=== PATIENT | male | born 1965 | race Caucasian/White ===

== ENCOUNTER 2021-07-17 23:02 | Emergency (ER) | payer OTHER, SELFPAY ==
[2021-07-17 23:12] VITALS: BP 147/83; PULSE 74; RESP 18; TEMP 36.5; O2SAT 95; BMI 27.9
--- NOTE | 2021-07-17 23:25 | CTR_ITS ---
PROCEDURE INFORMATION: Exam: CTA Chest With Contrast Exam date and time: 07/17/2021 11:25 PM Age: 56 years old Clinical indication: Abdominal pain; Localized; Left upper quadrant (luq); Left-sided; Prior surgery; Surgery date: 6+ months; Surgery type: Multiple abd; Patient HX: C/O cp w luq spasms TECHNIQUE: Imaging protocol: Computed tomographic angiography of the chest with contrast. 3D rendering (Not supervised by radiologist): MIP and/or 3D reconstructed images were created by the technologist. Radiation optimization: All CT scans at this facility use at least one of these dose optimization techniques: automated exposure control; mA and/or kV adjustment per patient size (includes targeted exams where dose is matched to clinical indication); or iterative reconstruction. Contrast material: OMNI 350; Contrast volume: 95 ml; Contrast route: INTRAVENOUS (IV); COMPARISON: No relevant prior studies available. RADIATION DOSE METRICS: Total DLP (mGy-cm): 1562.88 FINDINGS: Pulmonary arteries: Normal. No pulmonary emboli. Aorta: Unremarkable. No aortic aneurysm. No aortic dissection. Lungs: Emphysema. Upper lobe blebs. Negative for focal airspace consolidation. Negative for focal endobronchial lesion. Peripheral, subpleural ground-glass changes in the posterior lower lobes. Pleural spaces: Negative for pleural effusion. No pneumothorax. Heart: Unremarkable. No cardiomegaly. No pericardial effusion. Lymph nodes: Numerous tiny mediastinal lymph nodes are present. Bones/joints: Unremarkable. No acute fracture. Soft tissues: Unremarkable. IMPRESSION: Negative for pulmonary embolism. PROCEDURE INFORMATION: Exam: CT Abdomen And Pelvis With Contrast Exam date and time: 07/17/2021 11:25 PM Age: 56 years old Clinical indication: Abdominal pain; Localized; Left upper quadrant (luq); Left-sided; Prior surgery; Surgery date: 6+ months; Surgery type: Multiple abd; Patient HX: C/O cp w luq spasms TECHNIQUE: Imaging protocol: Computed tomography of the abdomen and pelvis with contrast. Radiation optimization: All CT scans at this facility use at least one of these dose optimization techniques: automated exposure control; mA and/or kV adjustment per patient size (includes targeted exams where dose is matched to clinical indication); or iterative reconstruction. Contrast material: OMNI 350; Contrast volume: 95 ml; Contrast route: INTRAVENOUS (IV); COMPARISON: No relevant prior studies available. RADIATION DOSE METRICS: Total DLP (mGy-cm): 1562.88 FINDINGS: Liver: Simple hepatic cyst in the right lobe measures 17 mm diameter. Gallbladder and bile ducts: Cholecystectomy. Intrahepatic and extrahepatic biliary system is mildly dilated. Pancreas: Normal. No ductal dilation. Spleen: Normal. No splenomegaly. Adrenal glands: Normal. No mass. Kidneys and ureters: Normal. No hydronephrosis. Stomach and bowel: Mild diverticulosis coli. No focal acute bowel wall inflammatory changes are identified. No focal bowel mass identified. Negative for bowel obstruction or perforation. Appendix: Normal appendix. Intraperitoneal space: Unremarkable. No free air. No significant fluid collection. Vasculature: Portal venous confluence is occluded. Mesenteric vein collaterals are noted throughout abdominal mesentery. The main portal vein is patent. Left and right portal veins are patent. The central aspect of the splenic vein is not clearly seen. Scattered abdominal aorta atherosclerosis without aneurysm or dissection. Lymph nodes: Unremarkable. No enlarged lymph nodes. Urinary bladder: Unremarkable as visualized. Reproductive: Unremarkable as visualized. Bones/joints: Unremarkable. No acute fracture. Soft tissues: Unremarkable. CT/CT angio chest w abd pel w con IMPRESSION: 1. Negative for acute abdominopelvic pathology. 2. 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 Radiation Dose CTDIVOL = (mGy): DLP = 1562.88~1562.88 (mGy-cm)
--- NOTE | 2021-07-17 23:25 | ECG_ITS ---
[facility] Test Date: 2021-07-17 Pat Name: Nate Bach Department: Room: Gender: Male Beader: : 1965 Requested By: Alcides Correa Order Number: [id number] Read MD: Samira Raygoza M.D. Measurements Intervals [place] Rate: 80 P: 43 MO: 163 QRS: -21 QRSD: 100 T: 35 QT: 368 QTc: 426 Interpretive Statements SINUS RHYTHM BORDERLINE LEFT AXIS DEVIATION [QRS AXIS < -20] INCOMPLETE RIGHT BUNDLE BRANCH BLOCK [90+ ms QRS DURATION, TERMINAL R IN V1/V2, 40+ ms S IN I/aVL/V4/V5/V6] No previous ECG available for comparison Electronically Signed On 07-18-2021 19:21:25 CDT by Samira Raygoza M.D. [id number]
--- NOTE | 2021-07-17 23:31 | W.ED.ABDPA2 ---
HPI - Abdominal Pain General: Chief Complaint: Abdominal Pain Stated Complaint: Mid Back Pain by Ribs Time Seen by Provider: 07/17/21 23:21 Source: patient Mode of arrival: ambulatory Limitations: no limitations History of Present Illness: HPI narrative: 56-year-old male has a history of pancreatitis following multiple abdominal surgeries stemming from his pancreatitis. He states that starting roughly 1 to 2 hours ago he started having a sharp pain in his upper abdomen along with bilateral lower chest. States pain radiates to his back. States pain is currently a 9 out of 10 he is having difficulty sleeping. He denies any vomiting he has had some nausea denies any fever. Denies any cough. Denies any shortness of breath. Associated Symptoms: Denies chills, dysuria and fever(s) Review of Systems Const: Denies: fever(s), chills, body aches or change in appetite Eyes: Denies: blurry vision or eye discomfort ENMT: Denies: throat pain or dental pain Card: Reports: chest pain Resp: Denies: dyspnea GI: Reports: abdominal pain : Denies: dysuria Musc: Denies: neck pain or back pain Skin/Breast: Denies: rash Neuro: Denies: headache(s) Psych: Denies: depression Marcus/Lymph: Denies: easy bruising All/Imm: Denies: urticaria Physical Exam Const: COMMON NORMALS: no acute distress, patient oriented x3 and healthy appearing HENMT: COMMON NORMALS: normocephalic and atraumatic HEAD & SCALP: normocephalic and atraumatic Eye: COMMON NORMALS: Equal, round and reactive pupils present and EOMs intact bilaterally PUPIL: Yes Equal, round and reactive pupils present Neck/C-Spine: COMMON NORMALS: full ROM and supple Chest: COMMONS NORMALS: normal inspection of the chest and normal palpation of entire chest wall Resp: COMMON NORMALS: normal respiratory effort, No retractions, No use of accessory muscles and clear to auscultation bilaterally AUSCULTATION: clear to auscultation bilaterally Cardio: COMMON NORMALS: regular rate, regular rhythm and No murmurs present (Cardio) RATE: regular rate RHYTHM: regular rhythm GI: COMMON NORMALS: Normal to inspection, nondistended, normoactive bowel sounds present, Soft to palpation, non-tender and no masses PALPATION: Yes Soft to palpation Extremity: COMMON NORMALS: normal to inspection and full ROM Neuro: COMMON NORMALS: patient oriented x3, moves all extremities and no focal motor deficits Psych: COMMON NORMALS: mental status grossly normal, Normal thought process present and cooperative THOUGHT PROCESS: Normal thought process present Skin: COMMON NORMALS: no rashes or lesions noted and no wounds GENERAL SKIN EXAM: no rashes or lesions noted Course Vital Signs: Vital signs: Vital Signs Temperature 97.7 F 07/17/21 23:12 Pulse Rate 73 07/17/21 23:54 Respiratory Rate 12 07/17/21 23:54 Blood Pressure 108/62 07/18/21 02:35 Pulse Oximetry 94 07/18/21 02:35 MDM - Abdominal Pain MDM Narrative: Medical decision making narrative: Patient presents with abdominal pain also some lower chest pain. Troponins EKG CTs are all normal. He feels much improved here as well. He is stable for discharge is to follow-up his PCP and return if worsening. Lab Data: Labs: Lab Results 07/17/21 07/17/21 07/17/21 23:50 23:50 23:50 WBC 6.1 10^3/uL 10^3/ uL (4.0-10.0) RBC 4.43 10^6/uL 10^6 /uL (4.1-5.3) Hgb 15.0 g/dL g/dL (11.7-16.6) Hct 40.5 % L % (42.0-52.0) MCV 91.4 fl fl (80-94) MCH 33.9 pg pg (28.0-34.0) MCHC 37.0 g/dL H g/dL (30.0-36.0) RDW 15.2 % H % (12.1-15.1) Plt Count 97 10^3/cmm L 10^ 3/cmm (130-400) MPV 11.6 fL H fL (7.4-10.4) Neut % (Auto) 76.6 % % Lymph % (Auto) 9.8 % % [place] % (Auto) 10.6 % % Eos % (Auto) 2.3 % % Baso % (Auto) 0.5 % % Neut # (Auto) 4.64 10^3/uL 10^3 /uL (1.8-7.7) Lymph # (Auto) 0.6 10^3/uL L 10^ 3/uL (0.8-4.8) [place] # (Auto) 0.6 10^3/uL 10^3/ uL (0.2-0.9) Eos # (Auto) 0.1 10^3/uL 10^3/ uL (0.0-0.8) Baso # (Auto) 0.0 10^3/uL 10^3/ uL (0.0-0.1) Nucleated RBC % (a uto) 0 % % Nucleated RBCs # 0.0 /100WBC /100W BC Sodium 136 mmol/L mmol/L (136-145) Potassium 4.4 mmol/L mmol/L (3.5-5.1) Chloride 105 mmol/L mmol/L (98-107) Carbon Dioxide 23 mmol/L mmol/L (22-29) Anion Gap 12.4 (5-19) BUN 20 mg/dL mg/dL (6-20) Creatinine 1.2 mg/dL mg/dL (0.7-1.2) GFR Calculation 62.9 mL/min L mL/ min (90-130) Glucose 148 mg/dL H mg/dL (65-115) Calculated Osmolal ity 287 mOsm/kg mOsm/ kg (285-295) Calcium 8.7 mg/dL mg/dL (8.5-10.5) Total Bilirubin 0.5 mg/dL mg/dL (0.15-1.2) AST 31 U/L U/L (0-40) ALT 26 U/L U/L (0-41) Alkaline Phosphata se 81 IU/L IU/L (40-130) Troponin T Baselin e 9 ng/L ng/L (0-15) Troponin T 120 Min craig Delta Troponin T Total Protein 6.2 g/dL L g/dL (6.6-8.7) Albumin 3.8 g/dL g/dL (3.5-5.2) Globulin 2.4 g/dL g/dL (1.3-4.6) Lipase 52 U/L U/L (13-60) Urine Color Urine Appearance Urine pH Ur Specific Gravit y Urine Protein Urine Glucose (UA) Urine Ketones Urine Blood Urine Nitrate Urine Bilirubin Urine Urobilinogen Ur Leukocyte Madeline ase 07/18/21 07/18/21 00:58 01:54 WBC RBC Hgb Hct MCV MCH MCHC RDW Plt Count MPV Neut % (Auto) Lymph % (Auto) [place] % (Auto) Eos % (Auto) Baso % (Auto) Neut # (Auto) Lymph # (Auto) [place] # (Auto) Eos # (Auto) Baso # (Auto) Nucleated RBC % (a uto) Nucleated RBCs # Sodium Potassium Chloride Carbon Dioxide Anion Gap BUN Creatinine GFR Calculation Glucose Calculated Osmolal ity Calcium Total Bilirubin AST ALT Alkaline Phosphata se Troponin T Baselin e Troponin T 120 Min craig 8.35 ng/L ng/L (0-15) Delta Troponin T -0.65 ABS# L ABS# (0-10) Total Protein Albumin Globulin Lipase Urine Color Yellow (Yellow) Urine Appearance Clear (CLEAR) Urine pH 5 (5-7) Ur Specific Gravit y 1.020 (1.005-1.030) Urine Protein Neg (Negative) Urine Glucose (UA) Norm (Normal) Urine Ketones Negative (Negative) Urine Blood Neg (Negative) Urine Nitrate Negative (Negative) Urine Bilirubin Neg (Negative) Urine Urobilinogen Norm mg/dL mg/dL (Negative) Ur Leukocyte Madeline ase Negative (Negative) Imaging Data ^: CT Chest: Attestation: I personally reviewed and interpreted this imaging study as follows: Radiologist's impression: [address] [address] [address] Scan Report Signed Patient: Nate Bach Unit #: [id number] : 1965 Age/Sex: 56 / M ADM Date: 07/17/21 Loc: ER Room/Bed: Attending Dr: Ordering Provider/Ordering MD: Alcides Correa MD Date of Service: 07/17/21 Procedure(s): CT angio chest w abd pel w con Accession Number(s): [id number] Report Number: [id number] PROCEDURE INFORMATION: Exam: CTA Chest With Contrast Exam date and time: 07/17/2021 11:25 PM Age: 56 years old Clinical indication: Abdominal pain; Localized; Left upper quadrant (luq); Left-sided; Prior surgery; Surgery date: 6+ months; Surgery type: Multiple abd; Patient HX: C/O cp w luq spasms TECHNIQUE: Imaging protocol: Computed tomographic angiography of the chest with contrast. 3D rendering (Not supervised by radiologist): MIP and/or 3D reconstructed images were created by the technologist. Radiation optimization: All CT scans at this facility use at least one of these dose optimization techniques: automated exposure control; mA and/or kV adjustment per patient size (includes targeted exams where dose is matched to clinical indication); or iterative reconstruction. Contrast material: OMNI 350; Contrast volume: 95 ml; Contrast route: INTRAVENOUS (IV); COMPARISON: No relevant prior studies available. RADIATION DOSE METRICS: Total DLP (mGy-cm): 1562.88 FINDINGS: Pulmonary arteries: Normal. No pulmonary emboli. Aorta: Unremarkable. No aortic aneurysm. No aortic dissection. Lungs: Emphysema. Upper lobe blebs. Negative for focal airspace consolidation. Negative for focal endobronchial lesion. Peripheral, subpleural ground-glass changes in the posterior lower lobes. Pleural spaces: Negative for pleural effusion. No pneumothorax. Heart: Unremarkable. No cardiomegaly. No pericardial effusion. Lymph nodes: Numerous tiny mediastinal lymph nodes are present. Bones/joints: Unremarkable. No acute fracture. Soft tissues: Unremarkable. IMPRESSION: Negative for pulmonary embolism. PROCEDURE INFORMATION: Exam: CT Abdomen And Pelvis With Contrast Exam date and time: 07/17/2021 11:25 PM Age: 56 years old Clinical indication: Abdominal pain; Localized; Left upper quadrant (luq); Left-sided; Prior surgery; Surgery date: 6+ months; Surgery type: Multiple abd; Patient HX: C/O cp w luq spasms TECHNIQUE: Imaging protocol: Computed tomography of the abdomen and pelvis with contrast. Radiation optimization: All CT scans at this facility use at least one of these dose optimization techniques: automated exposure control; mA and/or kV adjustment per patient size (includes targeted exams where dose is matched to clinical indication); or iterative reconstruction. Contrast material: OMNI 350; Contrast volume: 95 ml; Contrast route: INTRAVENOUS (IV); COMPARISON: No relevant prior studies available. RADIATION DOSE METRICS: Total DLP (mGy-cm): 1562.88 FINDINGS: Liver: Simple hepatic cyst in the right lobe measures 17 mm diameter. Gallbladder and bile ducts: Cholecystectomy. Intrahepatic and extrahepatic biliary system is mildly dilated. Pancreas: Normal. No ductal dilation. Spleen: Normal. No splenomegaly. Adrenal glands: Normal. No mass. Kidneys and ureters: Normal. No hydronephrosis. Stomach and bowel: Mild diverticulosis coli. No focal acute bowel wall inflammatory changes are identified. No focal bowel mass identified. Negative for bowel obstruction or perforation. Appendix: Normal appendix. Intraperitoneal space: Unremarkable. No free air. No significant fluid collection. Vasculature: Portal venous confluence is occluded. Mesenteric vein collaterals are noted throughout abdominal mesentery. The main portal vein is patent. Left and right portal veins are patent. The central aspect of the splenic vein is not clearly seen. Scattered abdominal aorta atherosclerosis without aneurysm or dissection. Lymph nodes: Unremarkable. No enlarged lymph nodes. Urinary bladder: Unremarkable as visualized. Reproductive: Unremarkable as visualized. Bones/joints: Unremarkable. No acute fracture. Soft tissues: Unremarkable. CT/CT angio chest w abd pel w con IMPRESSION: 1. Negative for acute abdominopelvic pathology. 2. 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 Radiation Dose CTDIVOL = (mGy): DLP = 1562.88 1562.88 (mGy-cm) EKG Data ^: EKG 1: Attestation: I personally reviewed and interpreted this EKG as follows: EKG interpretation date: 07/17/21 EKG interpretation time: 23:31 Interpretation: nsr hr [address] or t wave abnormalities qrs 100 qtc 404 Discharge Plan Discharge Patient Disposition: Home Clinical Impression: Abdominal pain Qualifiers: Abdominal location: generalized Qualified Code(s): R10.84 - Generalized abdominal pain Condition: Stable Discharge Orders: Discharge ED (Routine); Ordered 07/18/21 Ordered By: Alcides Correa Discharge Diet: Advance as tolerated Discharge Activity: Resume usual activity Patient Instructions: Abdominal Pain (ED), Opioid Safety Coding Level of Care Code ED Parachute Marker for Chg Fwd Exam Comprehensive
[2021-07-17] MEDS: sodium chloride 0.9% 1,000 ML 999 ML IV (23:38)
[2021-07-17] MEDS: ondansetron 2 mg/ML SDV 2 mL 4 MG IVP (23:42)
[2021-07-17] MEDS: HYDROmorphone 1 mg/mL INJ 1 mL IVP (23:42)
[2021-07-17 23:54] VITALS: BP 120/93; PULSE 73; RESP 12; O2SAT 90
[2021-07-17 23:56] LABS: Basophils % 0.5 %; Eosinophils # 0.1 10^3/uL (0.0-0.8); Eosinophils % 2.3 %; Hematocrit 40.5 % (42.0-52.0); Lymphocytes # 0.6 10^3/uL (0.8-4.8); Lymphocytes % 9.8 %; Mean Corpuscular Hemoglobin 33.9 pg (28.0-34.0); Mean Corpuscular Volume 91.4 fl (80-94); Mean Platelet Volume 11.6 fL (7.4-10.4); Monocytes # 0.6 10^3/uL (0.2-0.9); Monocytes % 10.6 %; Neutrophils # 4.64 10^3/uL (1.8-7.7); Neutrophils % 76.6 %; Nucleated Red Blood Cells % 0 %; Platelet Count 97 10^3/cmm (130-400); Red Blood Count 4.43 10^6/uL (4.1-5.3); Red Cell Distribution Width 15.2 % (12.1-15.1); White Blood Count 6.1 10^3/uL (4.0-10.0)
[2021-07-17 23:58] VITALS: O2SAT 92
[2021-07-18] VITALS (38 sets, daily range): BP systolic 104–130; BP diastolic 62–75; O2SAT 91–96
[2021-07-18] MEDS: iohexol 350 mg/mL 100 mL Btl IV (00:22)
[2021-07-18 00:25] LABS: Albumin Level 3.8 g/dL (3.5-5.2); Alkaline Phosphatase 81 IU/L (40-130); Blood Urea Nitrogen 20 mg/dL (6-20); Calcium 8.7 mg/dL (8.5-10.5); Carbon Dioxide 23 mmol/L (22-29); Chloride 105 mmol/L (98-107); Creatinine Clr Calc Pharmacy 77.8974; Globulin 2.4 g/dL (1.3-4.6); Glomerular Filtration Rate 62.9 mL/min (90-130); Glucose 148 mg/dL (65-115); Lipase 52 U/L (13-60); Osmolality Calculated 287 mOsm/kg (285-295); Sodium 136 mmol/L (136-145); Total Bilirubin 0.5 mg/dL (0.15-1.2); Total Protein 6.2 g/dL (6.6-8.7); Troponin(5th) Baseline 9 ng/L (0-15)
[2021-07-18 00:33] LABS: Slide Review Slide Review Perform
[2021-07-18 00:34] LABS: Anion Gap 12.4 (5-19); Potassium 4.4 mmol/L (3.5-5.1)
[2021-07-18 01:20] LABS: Add Urine Microscopic? NO; Charge for UA Resulting for Rev
[2021-07-18 01:25] LABS: Bilirubin Urine Neg (Negative); Blood Urine Neg (Negative); Glucose Urine UA Norm (Normal); Ketones Urine Negative (Negative); Leukocyte Esterase Urine Negative (Negative); Nitrate Urine Negative (Negative); Protein Urine Neg (Negative); Urine Appearance Clear (CLEAR); Urine Color Yellow (Yellow); Urobilinogen Urine Norm (Negative); pH Urine 5 (5-7)
[2021-07-18 01:33] LABS: Alanine Aminotransferase 26 U/L (0-41); Aspartate Amino Transferase 31 U/L (0-40)
[2021-07-18 02:29] LABS: Troponin 5 2HR 8.35 ng/L (0-15)
[2021-07-18 02:32] LABS: Troponin 5 2HR Delta -0.65 ABS# (0-10)
== END 2021-07-18 03:17 | disposition home or self-care (01) ==
PROVIDERS: Emergency Provider Emergency Medicine
DX: R10.84 Generalized abdominal pain (principal)
CPT/HCPCS: 71275; 74177; 80053; 81003; 83690; 84484; 85025; 93005; 96361; 96374; 96375; 99284; J1170; J2405; J7030; Q9967

== ENCOUNTER 2021-07-19 15:36 | Emergency (ER) | payer OTHER, SELFPAY ==
[2021-07-19 16:09] VITALS: BP 155/95; PULSE 77; RESP 18; TEMP 36.9; O2SAT 96; BMI 27.9
[2021-07-19 17:32] LABS: Add Urine Microscopic? NO; Charge for UA Resulting for Rev
[2021-07-19 17:46] LABS: Bilirubin Urine Neg (Negative); Blood Urine Neg (Negative); Glucose Urine UA Norm (Normal); Ketones Urine Negative (Negative); Leukocyte Esterase Urine Negative (Negative); Nitrate Urine Negative (Negative); Protein Urine Neg (Negative); Urine Appearance Clear (CLEAR); Urine Color Yellow (Yellow); Urobilinogen Urine Norm (Negative); pH Urine 5 (5-7)
--- NOTE | 2021-07-19 18:10 | ED_ITS ---
HPI - Abdominal Pain General: Chief Complaint: Abdominal Pain Stated Complaint: ABD PAIN: SEEN HERE 2 NIGHTS AGO/PAIN WORSE Time Seen by Provider: 07/19/21 17:58 Source: patient Mode of arrival: ambulatory Limitations: no limitations History of Present Illness: HPI narrative: Patient is a 56-year-old male who presents to ED today with a complaint of abdominal pain. Patient states pain initially began 3 to 4 days ago. He was seen in our ED 2 days ago and had unremarkable labs and CT chest/abdomen/pelvis imaging. Patient tells me pain has not improved. Patient has a history of a cholecystectomy and subsequent gallstone pancreatitis/sepsis. He states he spent 7 months at [facility] and required multiple abdominal surgeries. Patient tells me is not having nausea or vomiting. He is reporting normal stools and passing gas. No fevers. MD elicited complaint: abdominal pain Onset (ago): day(s) Pain Consistency: constant Location: Epigastric, LUQ and RUQ Severity: severe Migration to: no migration Exacerbating factors: nothing Relieving factors: nothing Associated Symptoms: Denies change in stool character, chills, diarrhea, dysuria, fever(s), hematochezia, hematemesis, melena, nausea, syncope and vomiting Review of Systems Const: Denies: fever(s), chills, body aches, fatigue or malaise Card: Denies: chest pain, palpitations, irregular heart rhythm, edema, lightheadedness, syncope or pre-syncope Resp: Denies: dyspnea GI: Reports: abdominal pain; Denies: nausea, vomiting, hematemesis, diarrhea, change in stool character, hematochezia or melena : Denies: flank pain, difficulty urinating, dysuria, urinary frequency, urinary urgency or urinary hesitancy Musc: Denies: neck pain, back pain, extremity pain or joint pain Skin/Breast: Denies: rash Neuro: Denies: headache(s), numbness in extremities, weakness in extremities or sensory changes Physical Exam Const: COMMON NORMALS: no acute distress, average body habitus, patient oriented x3, no limitations, healthy appearing, alert and well nourished GENERAL APPEARANCE: cooperative ORIENTATION/CONSCIOUSNESS: Yes awake, Yes oriented to person, Yes oriented to place and Yes oriented to time HENMT: COMMON NORMALS: normocephalic and atraumatic HEAD & SCALP: normocephalic and atraumatic Chest: COMMONS NORMALS: normal inspection of the chest and normal palpation of entire chest wall Resp: COMMON NORMALS: normal respiratory effort and clear to auscultation bilaterally AUSCULTATION: clear to auscultation bilaterally Cardio: COMMON NORMALS: regular rate and regular rhythm RATE: regular rate RHYTHM: regular rhythm GI: COMMON NORMALS: Soft to palpation, No hepatosplenomegaly present and no masses INSPECTION: Yes normal to inspection and Yes other (several previous old surgical scars) AUSCULTATION: Yes normoactive bowel sounds PALPATION: Yes Soft to palpation, Yes Tenderness to palpation present (GI) (throughout upper abdomen wrapping around to back) and Yes No hepatosplenomegaly present Back/Pelvis: COMMON NORMALS: thoracic and lumbar spine normal to inspection, no thoracic nor lumbar tenderness and thoraco-lumbar ROM normal Extremity: COMMON NORMALS: normal to inspection and no pedal edema Neuro: COMMON NORMALS: patient oriented x3 SENSORIUM/ORIENTATION: Yes alert, Yes oriented to person, Yes oriented to place and Yes oriented to time Skin: COMMON NORMALS: no rashes or lesions noted GENERAL SKIN EXAM: no rashes or lesions noted TRAUMA: no lacerations or abrasions Course Vital Signs: Vital signs: Vital Signs Temperature 98.4 F 07/19/21 16:09 Pulse Rate 76 07/19/21 19:25 Respiratory Rate 18 07/19/21 19:25 Blood Pressure 157/92 07/19/21 19:25 Pulse Oximetry 96 07/19/21 19:25 MDM - Abdominal Pain MDM Narrative: Medical decision making narrative: Patient appears in no acute distress. His vital signs are normal. Labs again are fairly unremarkable. Repeat CT imaging with no changes from previous. Recommend follow-up with PCP for further evaluation and possible referral to GI. He has no complaints of chest pain, shortness of breath, difficulty breathing. Return to ED precautions given. He is requesting something to help with discomfort. Lab Data: Labs: Lab Results 07/19/21 07/19/21 07/19/21 17:16 18:15 18:15 WBC 10.5 10^3/uL H 10 ^3/uL (4.0-10.0) RBC 4.61 10^6/uL 10^6 /uL (4.1-5.3) Hgb 14.9 g/dL g/dL (11.7-16.6) Hct 42.7 % % (42.0-52.0) MCV 92.6 fl fl (80-94) MCH 32.3 pg pg (28.0-34.0) MCHC 34.9 g/dL g/dL (30.0-36.0) RDW 16.2 % H % (12.1-15.1) Plt Count 99 10^3/cmm L 10^ 3/cmm (130-400) MPV 11.9 fL H fL (7.4-10.4) Neut % (Auto) 83.3 % % Lymph % (Auto) 7.0 % % [place] % (Auto) 8.5 % % Eos % (Auto) 0.7 % % Baso % (Auto) 0.2 % % Neut # (Auto) 8.77 10^3/uL H 10 ^3/uL (1.8-7.7) Lymph # (Auto) 0.7 10^3/uL L 10^ 3/uL (0.8-4.8) [place] # (Auto) 0.9 10^3/uL 10^3/ uL (0.2-0.9) Eos # (Auto) 0.1 10^3/uL 10^3/ uL (0.0-0.8) Baso # (Auto) 0.0 10^3/uL 10^3/ uL (0.0-0.1) Nucleated RBC % (a uto) 0 % % Nucleated RBCs # 0.0 /100WBC /100W BC Sodium 135 mmol/L L mmol /L (136-145) Potassium 4.7 mmol/L mmol/L (3.5-5.1) Chloride 101 mmol/L mmol/L (98-107) Carbon Dioxide 26 mmol/L mmol/L (22-29) Anion Gap 12.7 (5-19) BUN 15 mg/dL mg/dL (6-20) Creatinine 1.2 mg/dL mg/dL (0.7-1.2) GFR Calculation 62.9 mL/min L mL/ min (90-130) Glucose 173 mg/dL H mg/dL (65-115) Calculated Osmolal ity 285 mOsm/kg mOsm/ kg (285-295) Calcium 9.5 mg/dL mg/dL (8.5-10.5) Total Bilirubin 0.9 mg/dL mg/dL (0.15-1.2) AST 24 U/L U/L (0-40) ALT 25 U/L U/L (0-41) Alkaline Phosphata se 77 IU/L IU/L (40-130) Total Protein 7.3 g/dL g/dL (6.6-8.7) Albumin 4.3 g/dL g/dL (3.5-5.2) Globulin 3.0 g/dL g/dL (1.3-4.6) Lipase 34 U/L U/L (13-60) Urine Color Yellow (Yellow) Urine Appearance Clear (CLEAR) Urine pH 5 (5-7) Ur Specific Gravit y 1.020 (1.005-1.030) Urine Protein Neg (Negative) Urine Glucose (UA) Norm (Normal) Urine Ketones Negative (Negative) Urine Blood Neg (Negative) Urine Nitrate Negative (Negative) Urine Bilirubin Neg (Negative) Urine Urobilinogen Norm mg/dL mg/dL (Negative) Ur Leukocyte Madeline ase Negative (Negative) Imaging Data ^: CT Abd/Pel: Radiologist's impression: [address] [id number] Scan ReportSigned Patient: Nate Bach #: [id number]: 1965Acct#:[id number]/Sex: 56 / MADM Date: 07/19/21Loc: ERRoom/Bed:A ttending Dr: Ordering Provider/Ordering MD: Dimple Lema Date of Service: 07/19/21 Procedure(s): CT abdomen pelvis w con* [id number] Accession Number(s): [id number] Report Number: [id number] PROCEDURE INFORMATION: Exam: CT Abdomen And Pelvis With Contrast Exam date and time: 07/19/2021 6:57 PM Age: 56 years old Clinical indication: Nausea; Abdominal pain; Prior surgery; Additional info: Upper abdominal pain, radiating bilateral back TECHNIQUE: Imaging protocol: Computed tomography of the abdomen and pelvis with contrast. Radiation optimization: All CT scans at this facility use at least one of these dose optimization techniques: automated exposure control; mA and/or kV adjustment per patient size (includes targeted exams where dose is matched to clinical indication); or iterative reconstruction. Contrast material: OMNI 300; Contrast volume: 95 ml; Contrast route: INTRAVENOUS (IV); COMPARISON: CT angio chest w abd pel w con 07/18/2021 12:17 AM RADIATION DOSE METRICS: Total DLP (mGy-cm): 1696.16 FINDINGS: Liver: Simple circumscribed cyst in the right hepatic lobe is unchanged. Greatest diameter 17 mm. Gallbladder and bile ducts: Cholecystectomy. Mildly dilated intrahepatic and extrahepatic biliary system is stable in diameter from prior imaging. Pancreas: Atrophic changes of pancreatic parenchyma. Mild diffuse ectasia of the main pancreatic duct. Spleen: Small calcified granulomas within the spleen. No focal splenic mass. Mild splenomegaly. Splenic length 15.3 cm. Adrenal glands: Normal. No mass. Kidneys and ureters: Simple left renal lower pole cortical cyst. No dedicated follow-up recommended. Mildly dilated right intrarenal collecting system without obstructing lesion. Stomach and bowel: Surgical anastomosis of a left lower quadrant small bowel loop with unremarkable appearance. Negative for small bowel obstruction. Negative for bowel perforation. Mild diverticulosis coli. Large diffuse fecal volume. Appendix: Normal appendix. Intraperitoneal space: Unremarkable. No free air. No significant fluid collection. 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 Mature mesenteric vein collaterals are noted throughout the abdominal mesentery. Circumferential abdominal aorta atherosclerotic wall plaques without aneurysm or dissection. No acute vascular occlusion. Lymph nodes: Unremarkable. No enlarged lymph nodes. Urinary bladder: Unremarkable as visualized. Reproductive: Unremarkable as visualized. Bones/joints: Unremarkable. No acute fracture. Soft tissues: Soft tissues of abdominal wall are unremarkable. CT/CT abdomen pelvis w con* [id number] IMPRESSION: 1. No acute abdominopelvic pathology. 2. No change from comparison. COMMENTS: Consistent with the [employer]'s Incidental Findings Committee white paper (J Am Caitlyn Radiol 2018): Any incidental renal lesion less than 1 cm or classified as too small to characterize, or any incidental cystic renal lesion characterized as simple-appearing, is likely benign. No follow-up imaging is recommended for these lesions per consensus recommendations based on imaging criteria. Radiation Dose CTDIVOL = (mGy): DLP = 1696.16 (mGy-cm) Dictated By:Frame,KevinSigned By:Frame,KevinSigned Date/Time:07/19/212036DD/ 56 Discharge Plan Discharge Patient Disposition: Home Clinical Impression: Abdominal pain of unknown cause Condition: Stable Prescriptions: New hydrocodone-acetaminophen 5-325 mg tablet 1 tab PO Q6H PRN (Reason: pain) Qty: 15 RF: 0 Discharge Orders: Discharge ED (Routine); Ordered 07/19/21 Ordered By: Dimple Lema Patient Instructions: Abdominal Pain (ED), Opioid Safety Activity Restrictions/Additional Instructions: [facility] is committed to fighting the nationwide opiate epidemic. We are providing ALL patients with information regarding opiate safety. If you received opiate pain medication during your stay or if you received a prescription for opiate pain medication-please review this handout. If not, you may disregard. Thank you. As we discussed you may take the pain medications for severe pain. You may return to the emergency department for worsening or uncontrollable pain, severe vomiting or diarrhea, blood in your vomit or stool, fevers, severe chest pains, or any other concerns you may have. Otherwise please follow-up with a primary care provider as soon as possible for further evaluation and possible referral to GI. Coding Level of Care Code ED Fraud Manager for Jose Alfredo Fwd Exam Comprehensive
[2021-07-19 18:30] VITALS: RESP 18
[2021-07-19] MEDS: morphine 4 mg/mL SDV 1 mL IVP (18:30)
[2021-07-19] MEDS: ondansetron 2 mg/ML SDV 2 mL 4 MG IVP (18:31)
[2021-07-19 18:37] LABS: Basophils % 0.2 %; Eosinophils # 0.1 10^3/uL (0.0-0.8); Eosinophils % 0.7 %; Hematocrit 42.7 % (42.0-52.0); Hemoglobin 14.9 g/dL (11.7-16.6); Lymphocytes # 0.7 10^3/uL (0.8-4.8); Mean Corpuscular HGB Conc 34.9 g/dL (30.0-36.0); Mean Corpuscular Hemoglobin 32.3 pg (28.0-34.0); Mean Corpuscular Volume 92.6 fl (80-94); Mean Platelet Volume 11.9 fL (7.4-10.4); Monocytes # 0.9 10^3/uL (0.2-0.9); Monocytes % 8.5 %; Neutrophils # 8.77 10^3/uL (1.8-7.7); Neutrophils % 83.3 %; Nucleated Red Blood Cells % 0 %; Platelet Count 99 10^3/cmm (130-400); Red Blood Count 4.61 10^6/uL (4.1-5.3); Red Cell Distribution Width 16.2 % (12.1-15.1); White Blood Count 10.5 10^3/uL (4.0-10.0)
[2021-07-19 18:54] LABS: Alanine Aminotransferase 25 U/L (0-41); Albumin Level 4.3 g/dL (3.5-5.2); Alkaline Phosphatase 77 IU/L (40-130); Anion Gap 12.7 (5-19); Aspartate Amino Transferase 24 U/L (0-40); Blood Urea Nitrogen 15 mg/dL (6-20); Calcium 9.5 mg/dL (8.5-10.5); Carbon Dioxide 26 mmol/L (22-29); Chloride 101 mmol/L (98-107); Creatinine Clr Calc Pharmacy 77.8974; Glomerular Filtration Rate 62.9 mL/min (90-130); Glucose 173 mg/dL (65-115); Lipase 34 U/L (13-60); Osmolality Calculated 285 mOsm/kg (285-295); Potassium 4.7 mmol/L (3.5-5.1); Sodium 135 mmol/L (136-145); Total Bilirubin 0.9 mg/dL (0.15-1.2); Total Protein 7.3 g/dL (6.6-8.7)
--- NOTE | 2021-07-19 18:57 | CTR_ITS ---
PROCEDURE INFORMATION: Exam: CT Abdomen And Pelvis With Contrast Exam date and time: 07/19/2021 6:57 PM Age: 56 years old Clinical indication: Nausea; Abdominal pain; Prior surgery; Additional info: Upper abdominal pain, radiating bilateral back TECHNIQUE: Imaging protocol: Computed tomography of the abdomen and pelvis with contrast. Radiation optimization: All CT scans at this facility use at least one of these dose optimization techniques: automated exposure control; mA and/or kV adjustment per patient size (includes targeted exams where dose is matched to clinical indication); or iterative reconstruction. Contrast material: OMNI 300; Contrast volume: 95 ml; Contrast route: INTRAVENOUS (IV); COMPARISON: CT angio chest w abd pel w con 07/18/2021 12:17 AM RADIATION DOSE METRICS: Total DLP (mGy-cm): 1696.16 FINDINGS: Liver: Simple circumscribed cyst in the right hepatic lobe is unchanged. Greatest diameter 17 mm. Gallbladder and bile ducts: Cholecystectomy. Mildly dilated intrahepatic and extrahepatic biliary system is stable in diameter from prior imaging. Pancreas: Atrophic changes of pancreatic parenchyma. Mild diffuse ectasia of the main pancreatic duct. Spleen: Small calcified granulomas within the spleen. No focal splenic mass. Mild splenomegaly. Splenic length 15.3 cm. Adrenal glands: Normal. No mass. Kidneys and ureters: Simple left renal lower pole cortical cyst. No dedicated follow-up recommended. Mildly dilated right intrarenal collecting system without obstructing lesion. Stomach and bowel: Surgical anastomosis of a left lower quadrant small bowel loop with unremarkable appearance. Negative for small bowel obstruction. Negative for bowel perforation. Mild diverticulosis coli. Large diffuse fecal volume. Appendix: Normal appendix. Intraperitoneal space: Unremarkable. No free air. No significant fluid collection. 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 Mature mesenteric vein collaterals are noted throughout the abdominal mesentery. Circumferential abdominal aorta atherosclerotic wall plaques without aneurysm or dissection. No acute vascular occlusion. Lymph nodes: Unremarkable. No enlarged lymph nodes. Urinary bladder: Unremarkable as visualized. Reproductive: Unremarkable as visualized. Bones/joints: Unremarkable. No acute fracture. Soft tissues: Soft tissues of abdominal wall are unremarkable. CT/CT abdomen pelvis w con* [id number] IMPRESSION: 1. No acute abdominopelvic pathology. 2. No change from comparison. COMMENTS: Consistent with the [employer]'s Incidental Findings Committee white paper (J Am Caitlyn Radiol 2018): Any incidental renal lesion less than 1 cm or classified as too small to characterize, or any incidental cystic renal lesion characterized as simple-appearing, is likely benign. No follow-up imaging is recommended for these lesions per consensus recommendations based on imaging criteria. Radiation Dose CTDIVOL = (mGy): DLP = 1696.16 (mGy-cm)
--- NOTE | 2021-07-19 19:13 | PC.NURSE ---
Report from JI Subramanian
[2021-07-19 19:25] VITALS: BP 157/92; PULSE 76; RESP 18; O2SAT 96
[2021-07-19 19:25] LABS: Slide Review Slide Review Perform
[2021-07-19] MEDS: iohexol 300 mg/mL 100 mL Btl IV (19:31)
[2021-07-19] MEDS: HYDROcodone-acetaminophen 5-325 mg Tablet 2 TAB PO (21:04)
[2021-07-19 21:18] VITALS: BP 151/90; PULSE 74; RESP 16; O2SAT 97
== END 2021-07-19 21:26 | disposition home or self-care (01) ==
PROVIDERS: Emergency Medicine; Emergency Provider Physician Assistant
DX: R10.9 Unspecified abdominal pain (principal)
CPT/HCPCS: 74177; 80053; 81003; 83690; 85025; 96374; 96375; 99284; J2270; J2405; Q9967